=== PATIENT | female | born 1965 ===

== ENCOUNTER 2017-09-02 17:34 | Emergency (ER) | payer SELFPAY ==
[2017-09-02 17:45] VITALS: BP 153/101
== END 2017-09-02 22:03 | disposition left against medical advice (07) ==
LOC: ED 17:34
DX: M54.2 Cervicalgia (principal); Z53.21 Procedure and treatment not carried out due to patient leaving prior to being seen by health care provider; V89.2XXA Person injured in unspecified motor-vehicle accident, traffic, initial encounter; Y93.89 Activity, other specified; Y99.8 Other external cause status; Y92.410 Unspecified street and highway as the place of occurrence of the external cause